=== PATIENT | male | born 1995 | race Hispanic/Latino ===

== ENCOUNTER 2018-07-23 17:40 | Emergency (ER) | payer MEDICARE ==
[~2018-07-23] VITALS: Ht 175.3 cm; Wt 84.4 kg
[2018-07-23] MEDS ORDERED: SODIUM CHLORIDE 0.9% 1000ML 1,000 ML IV STA (18:13)
[2018-07-23] MEDS ORDERED: ONDANSETRON HCL INJ 2MG/ML 2ML 2 MG/ML VIAL IV NR (18:14)
[2018-07-23] MEDS ORDERED: SODIUM CHLORIDE 0.9% 1000ML 1,000 ML IV SCH (18:15)
[2018-07-23] MEDS ORDERED: ACETAMINOPHEN 325 MG TAB PO ONE ×2 (18:15)
[2018-07-23] MEDS ORDERED: ACETAMINOPHEN 1000 MG/100 ML IV NR (18:26)
[2018-07-23] MEDS ORDERED: CETIRIZINE HCL10 MG PO (18:50)
[2018-07-23] MEDS ORDERED: FAMOTIDINE40 MG PO (18:50)
[2018-07-23 18:51] LABS: BILIRUBIN,URINE 2+ (NEGATIVE); CLARITY,URINE SL CLOUDY (CLEAR); COLOR,URINE STRAW (YELLOW); KETONES,URINE 2+ (NEGATIVE); LEUKOCYTE ESTERASE ,URINE NEGATIVE (NEGATIVE); NITRITE,URINE NEGATIVE (NEGATIVE); PROTEIN,URINE DIPSTICK 2+ (NEGATIVE); URINE UROBILINOGEN 4 mg/dL (0.2 - 1)
[2018-07-23 18:54] LABS: BASOPHILS % 0.3 % (0.0-1.0); HEMATOCRIT 41.2 % (38.2-49.6); HEMOGLOBIN 14.6 g/dL (14.0-18.0); LYMPHOCYTES # (AUTO) 1.6 (1.0-3.2); LYMPHOCYTES % 12.3 % (18.0-39.1); MEAN CORPUSCULAR HEMOGLOBIN 34.7 pg (28-32); MEAN CORPUSCULAR HGB CONC 35.4 g/dL (31-35); MEAN CORPUSCULAR VOLUME 97.9 fL (81-99); MONOCYTES # (AUTO) 2.3 (0.2-0.8); NEUTROPHILS # (AUTO) 8.8 (2.1-6.9); PLATELET COUNT 218 x10e3/uL (140-360); RED BLOOD COUNT 4.21 x10e6/uL (4.3-5.7); RED CELL DISTRIBUTION WIDTH 13.4 % (11.7-14.4)
[2018-07-23 19:01] LABS: AMORPHOUS SEDIMENT,URINE MODERATE (FEW); BACTERIA,URINE MODERATE /HPF; EPITHELIAL CELLS,URINE FEW /LPF; MUCUS,URINE FEW (RARE)
[2018-07-23 19:12] LABS: ALANINE AMINOTRANSFERASE 30 IU/L (0-55); ALBUMIN 4.4 g/dL (3.5-5.0); ALBUMIN/GLOBULIN RATIO 1.1 (0.8-2.0); ALKALINE PHOSPHATASE 65 IU/L (40-150); AMYLASE 44 U/L (25-125); ANION GAP 17.2 mmol/L (8-16); BLOOD UREA NITROGEN 11 mg/dL (7-26); BUN/CREATININE RATIO 14 (6-25); CALCIUM 9.6 mg/dL (8.4-10.2); CARBON DIOXIDE 21 mmol/L (22-29); CHLORIDE 98 mmol/L (98-107); CREATININE, SERUM 0.78 mg/dL (0.72-1.25); EST GLOMERULAR FILTRATION RATE > 60 ML/MIN (60-); GLUCOSE 110 mg/dL (74-118); LIPASE 11 U/L (8-78); POTASSIUM 3.2 mmol/L (3.5-5.1); SODIUM 133 mmol/L (136-145)
--- NOTE | 2018-07-23 19:21 | Diagnostic Imaging Report ---
EXAMINATION: CHEST SINGLE (PORTABLE) COMPARISON: None INDICATION: Fever, dehydration ^ERMD ORDER ^[id number] ^1850 ^Y DISCUSSION: Frontal view of the chest obtained at 1850 hours. HEART AND MEDIASTINUM: The heart is top normal in size to mildly enlarged. LINES: None. LUNGS: Lung volumes are low. No consolidation or interstitial thickening. PLEURA: No pleural effusion or pneumothorax. BONES AND SOFT TISSUES: No focal osseous lesion. The soft tissues are normal. IMPRESSION: Low lung volumes and mild cardiomegaly. No evidence of infiltrate. Signed by: Dr. Keisha Espinoza MD on 07/23/2018 7:18 PM
[2018-07-23 20:23] LABS: INFLUENZAE A&B ANTIGEN (RAPID) NEGATIVE (NEGATIVE)
[2018-07-23 20:40] LABS: STREPTOCOCCUS GRP A ANTIGEN NEGATIVE (NEGATIVE)
[2018-07-23] MEDS ORDERED: POTASSIUM CHLORIDE 20 MEQ TAB CR PO NR (20:51)
[2018-07-23] MEDS ORDERED: IBUPROFEN 400 MG TAB PO NR (21:00)
[2018-07-23] MEDS ORDERED: CEFTRIAXONE SOD 1 GM/NS 50 ML 50 ML IV ONE (21:00)
[2018-07-23] MEDS ORDERED: POTASSIUM CHLORIDE 20MEQ/15ML UDC ONE (21:11)
[2018-07-23] MEDS ORDERED: IBUPROFEN 100 MG/5 ML SUSP ONE (21:11)
[2018-07-23 21:52] VITALS: BP 145/81
== END 2018-07-23 21:53 | disposition home or self-care (01) ==
LOC: ER 17:40
DX: J20.9 Acute bronchitis, unspecified (principal); Q92.8 Other specified trisomies and partial trisomies of autosomes; Z82.49 Family history of ischemic heart disease and other diseases of the circulatory system; E87.6 Hypokalemia; D72.810 Lymphocytopenia
CPT/HCPCS: 36415; 71045; 80053; 81001; 82150; 83518; 83605; 83690; 85025; 87040; 87070; 87086; 87400; 99284; J0131; J0696; J2405; J7030

== ENCOUNTER 2018-08-26 23:35 | Emergency (ER) | payer MEDICARE ==
[~2018-08-26] VITALS: Ht 175.3 cm; Wt 84.4 kg
[~2018-08-26 23:35] MED LIST: CETIRIZINE HCL10 MG PO; FAMOTIDINE40 MG PO
--- OUTSIDE RECORDS SUMMARY | 2018-08-26 23:38 | XMS REPORT ---
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 Allergies, Adverse Reactions, Alerts This patient has no known allergies or adverse reactions. Medications This patient has no known medications. Results Test Description Test Time Test Comments Text Results Atomic Results Result Comments FUNGUS CULTURE + SMEAR 2018-08-26 18:37:00 CULTURE (BEAKER) (test xdmf=8965) No fungus isolated in 28 days FUNGUS SMEAR (BEAKER) (test zafy=1605) No fungi seen ANAEROBIC [id number] 07:12:00* Test Item Value Reference Range Comments CULTURE (BEAKER) (test rvua=7171) <1+ Finegoldia magna BLOOD [id number] 08:00:00* Test Item Value Reference Range Comments CULTURE (BEAKER) (test dcvw=7915) No growth in 5 days BLOOD [id number] 08:00:00* Test Item Value Reference Range Comments CULTURE (BEAKER) (test pfzv=2131) No growth in 5 days SURGICALLY OBTAINED CULTURE + GRAM [id number] 12:42:00* Test Item Value Reference Range Comments CULTURE (BEAKER) (test nrjk=1094) No growth GRAM STAIN RESULT (BEAKER) (test wqug=8347) No white blood cells seen GRAM STAIN RESULT (BEAKER) (test qgtt=72226) No organisms seen TISSUE [id number] 15:52:00Surgical Pathology Report Case: [id number] Authorizing Provider: Neo De Jesus MD Collected: 07/28/2018 1928 Ordering Location: [address] Received: 07/29/2018 0909 Service Pathologist: Elena Uriarte MD Specimen: Scrotum SKIN, SCROTUM, BIOPSY: - ULCERATION, NONSPECIFIC Signing Pathologist Direct Phone Line: [phone] signed by Elena Uriarte MD on 07/30/2018 at 3:52 [id number] givenScrotum tissue The specimen is received in a formalin-filled container and labeled with the patient's information labeled "scrotum tissue" and consists of a brown skin punch biopsy measuring 0.3 cm in diameter x 0.3 cm in depth. The resection margin is inked blue. The specimen is bisected and submitted entirely A1. CG/pl Sections show ulcerated skin with fibrinoid necrosis and acute inflammation which extends into the subcutis. Viral cytopathic or vasculitic changes are not seen.WOUND CULTURE + GRAM [id number] 09:57:00* Test Item Value Reference Range Comments CULTURE (BEAKER) (test wiqw=6781) 1+ Staphylococcus aureus GRAM STAIN RESULT (BEAKER) (test ombx=5532) 1+ White blood cells seen GRAM STAIN RESULT (BEAKER) (test wtbv=894953) <1+ gram negative rods GRAM STAIN RESULT (BEAKER) (test oeis=726761) 1+ gram variable rods GRAM STAIN RESULT (BEAKER) (test qtsw=476611) 1+ gram positive cocci 4+ Skin floraHIV-1 ANTIGEN WITH HIV-1/2 [id number] 06:31:00* Test Item Value Reference Range Comments HIV-1 ANTIGEN WITH HIV 1\\T\\2 ANTIBODY (2) (BEAKER) (test qoks=3859) Nonreactive Nonreactive BASIC METABOLIC [id number] 05:36:00* Test Item Value Reference Range Comments SODIUM (BEAKER) (test knba=862) 136 meq/L 136-145 POTASSIUM (BEAKER) (test fqan=576) 3.7 meq/L 3.5-5.1 CHLORIDE (BEAKER) (test lnzl=521) 105 meq/L 98-107 CO2 (BEAKER) (test rcxd=792) 22 meq/L 22-29 BLOOD UREA NITROGEN (BEAKER) (test eeoj=041) 10 mg/dL 7-21 CREATININE (BEAKER) (test cofs=886) 0.55 mg/dL 0.57-1.25 GLUCOSE RANDOM (BEAKER) (test gykw=887) 85 mg/dL 70-105 CALCIUM (BEAKER) (test maao=474) 9.2 mg/dL 8.4-10.2 EGFR (BEAKER) (test nazi=3311) 183 mL/min/1.73 sq m ESTIMATED GFR IS NOT ACCURATE CREATININE CLEARANCE IN PREDICTING GLOMERULAR FILTRATION RATE. ESTIMATED GFR IS NOT APPLICABLE FOR DIALYSIS PATIENTS. CBC (HEMOGRAM ONLY)2018-07-30 05:11:00* Test Item Value Reference Range Comments WHITE BLOOD CELL COUNT (BEAKER) (test wuig=465) 4.6 K/ L 3.5-10.5 RED BLOOD CELL COUNT (BEAKER) (test isds=900) 3.59 M/ L 4.63-6.08 HEMOGLOBIN (BEAKER) (test ehud=031) 12.3 GM/DL 13.7-17.5 HEMATOCRIT (BEAKER) (test slgm=223) 35.7 % 40.1-51.0 MEAN CORPUSCULAR VOLUME (BEAKER) (test jlut=001) 99.4 fL 79.0-92.2 MEAN CORPUSCULAR HEMOGLOBIN (BEAKER) (test lzvf=070) 34.3 pg 25.7-32.2 MEAN CORPUSCULAR HEMOGLOBIN CONC (BEAKER) (test hlir=673) 34.5 GM/DL 32.3-36.5 RED CELL DISTRIBUTION WIDTH (BEAKER) (test azrk=025) 13.2 % 11.6-14.4 PLATELET COUNT (BEAKER) (test kmmu=361) 349 K/CU MM 150-450 MEAN PLATELET VOLUME (BEAKER) (test onaj=753) 9.2 fL 9.4-12.4 NUCLEATED RED BLOOD CELLS (BEAKER) (test eadj=133) 0 /100 WBC 0-0 U/S, TESTICULAR (SCROTUM)2018-07-29 09:34:00Reason for exam:->unusual scrotal lesions and absent right testicle on examFINAL REPORT TECHNIQUE: Grayscale, color Doppler, and spectral Doppler ultrasound of the scrotum and testicles. INDICATION: 22-year-old man with absent right testicle on exam. COMPARISON: None. FINDINGS: RIGHT TESTIS: Undescended right testicle in the right groin measures 3.8 x 1.2 x 2 cm. Normal echotexture without focal lesions. LEFT TESTIS: Descended left testicle within the left hemiscrotum measures 4.1 x 1.6 x 2.2 cm. Few microcalcifications in the left testicle. Normal echotexture without focal lesions. VASCULAR: There are symmetric, arterial waveforms detected in both testes. No varicocele. EPIDIDYMIDES: Left epididymal cysts measure 0.5 x 0.6 x 0.7 cm and 0.7 x 0.6 x 0.5 cm. Right epididymis is unremarkable. SCROTUM: Left scrotal wall thickening with hyperem ia. IMPRESSION:Undescended right testicle in the right groin. Descended left te sticle in expected position. Few microcalcifications in the left testicle, nonsp ecific. Hyperemic left scrotal wall thickening, which may be seen in the settin g of cellulitis. Signed: Sandra Benavides MDReport Verified Date/Time: 9 09:34:03 Reading Location: [address] Ultrasound Reading Room [facility] signed by: SANDRA BENAVIDES MD on 07/29/2018 09:34 AM MAGNESIUM 2018-07-29 04:57:00* Test Item Value Reference Range Comments MAGNESIUM (BEAKER) (test hqdl=814) 2.1 mg/dL 1.6-2.6 BASIC METABOLIC [id number] 04:57:00* Test Item Value Reference Range Comments SODIUM (BEAKER) (test ffyl=439) 136 meq/L 136-145 POTASSIUM (BEAKER) (test kxcq=607) 3.5 meq/L 3.5-5.1 CHLORIDE (BEAKER) (test cito=653) 106 meq/L 98-107 CO2 (BEAKER) (test watq=287) 19 meq/L 22-29 BLOOD UREA NITROGEN (BEAKER) (test hska=120) 9 mg/dL 7-21 CREATININE (BEAKER) (test ezgz=027) 0.52 mg/dL 0.57-1.25 GLUCOSE RANDOM (BEAKER) (test scag=961) 95 mg/dL 70-105 CALCIUM (BEAKER) (test hquk=972) 8.9 mg/dL 8.4-10.2 EGFR (BEAKER) (test zkvp=6987) 195 mL/min/1.73 sq m ESTIMATED GFR IS NOT ACCURATE CREATININE CLEARANCE IN PREDICTING GLOMERULAR FILTRATION RATE. ESTIMATED GFR IS NOT APPLICABLE FOR DIALYSIS PATIENTS. RAD, CHEST, 1 VIEW, NON [id number] 08:22:00Reason for exam:->cough, feversShould this be performed at the bedside?->YesFINAL REPORT AP view of the chest dated 07/28/2018 CLINICAL INFORMATION: cough, fevers Comment: Heart is enlarged. Thoracic aorta is ectatic. Pulmonary vasculature is unremarkable. Lungs are clear. No pulmonary infiltrate or pleural effusion is present. Impression: Cardiomegaly without pulmonary edema. Signed: Greg Ward MDReport Verified Date/Time: 07/28/2018 08:22:04 Reading Location: [facility] Radiology Reading Room ALYSIS W/ REFLEX URINE [id number] 07:02:00* Test Item Value Reference Range Comments COLOR (BEAKER) (test ueqm=511) Yellow CLARITY (BEAKER) (test vgwt=221) Clear SPECIFIC GRAVITY UA (BEAKER) (test xrip=478) 1.016 1.001-1.035 PH UA (BEAKER) (test hwhg=307) 6.0 5.0-8.0 PROTEIN UA (BEAKER) (test zpmb=161) 10 mg/dL Negative GLUCOSE UA (BEAKER) (test ugpq=285) Negative Negative KETONES UA (BEAKER) (test mrjp=180) 10 mg/dL Negative BILIRUBIN UA (BEAKER) (test lbhi=506) Negative Negative BLOOD UA (BEAKER) (test rqzx=010) Negative Negative NITRITE UA (BEAKER) (test jmgx=464) Negative Negative LEUKOCYTE ESTERASE UA (BEAKER) (test pzws=640) Negative Negative UROBILINOGEN UA (BEAKER) (test oysv=677) > mg/dL 0.2-1.0 RBC UA (BEAKER) (test coqj=724) 2 /HPF WBC UA (BEAKER) (test moex=850) 4 /HPF MUCUS (BEAKER) (test dosb=6627) Few SQUAMOUS EPITHELIAL (BEAKER) (test iiwt=019) 2 /HPF SOURCE(BEAKER) (test chkc=3209) COMPREHENSIVE METABOLIC [id number] 06:00:00* Test Item Value Reference Range Comments TOTAL PROTEIN (BEAKER) (test igvt=453) 6.8 gm/dL 6.0-8.3 ALBUMIN (BEAKER) (test evtl=4086) 3.6 g/dL 3.5-5.0 ALKALINE PHOSPHATASE (BEAKER) (test rlyr=199) 70 U/L 40-150 BILIRUBIN TOTAL (BEAKER) (test vtpy=759) 0.9 mg/dL 0.2-1.2 SODIUM (BEAKER) (test eoyg=322) 137 meq/L 136-145 POTASSIUM (BEAKER) (test yksx=655) 3.0 meq/L 3.5-5.1 CHLORIDE (BEAKER) (test lnbd=512) 102 meq/L 98-107 CO2 (BEAKER) (test wlna=752) 26 meq/L 22-29 BLOOD UREA NITROGEN (BEAKER) (test ygjr=273) 8 mg/dL 7-21 CREATININE (BEAKER) (test rper=574) 0.58 mg/dL 0.57-1.25 GLUCOSE RANDOM (BEAKER) (test mjya=504) 97 mg/dL 70-105 CALCIUM (BEAKER) (test fpdo=868) 9.0 mg/dL 8.4-10.2 AST (SGOT) (BEAKER) (test kony=315) 29 U/L 5-34 ALT (SGPT) (BEAKER) (test pksa=870) 41 U/L 6-55 EGFR (BEAKER) (test ibbc=3348) 172 mL/min/1.73 sq m ESTIMATED GFR IS NOT ACCURATE CREATININE CLEARANCE IN PREDICTING GLOMERULAR FILTRATION RATE. ESTIMATED GFR IS NOT APPLICABLE FOR DIALYSIS PATIENTS. CBC W/PLT COUNT & AUTO [id number] 05:32:00* Test Item Value Reference Range Comments WHITE BLOOD CELL COUNT (BEAKER) (test hpch=991) 7.6 K/ L 3.5-10.5 RED BLOOD CELL COUNT (BEAKER) (test dbrj=026) 3.62 M/ L 4.63-6.08 HEMOGLOBIN (BEAKER) (test limk=996) 12.5 GM/DL 13.7-17.5 HEMATOCRIT (BEAKER) (test prnb=231) 36.3 % 40.1-51.0 MEAN CORPUSCULAR VOLUME (BEAKER) (test fivj=647) 100.3 fL 79.0-92.2 MEAN CORPUSCULAR HEMOGLOBIN (BEAKER) (test skej=598) 34.5 pg 25.7-32.2 MEAN CORPUSCULAR HEMOGLOBIN CONC (BEAKER) (test aunu=569) 34.4 GM/DL 32.3-36.5 RED CELL DISTRIBUTION WIDTH (BEAKER) (test zkei=856) 13.2 % 11.6-14.4 PLATELET COUNT (BEAKER) (test vzot=488) 274 K/CU MM 150-450 MEAN PLATELET VOLUME (BEAKER) (test hoai=556) 9.5 fL 9.4-12.4 NUCLEATED RED BLOOD CELLS (BEAKER) (test dyqc=229) 0 /100 WBC 0-0 NEUTROPHILS RELATIVE PERCENT (BEAKER) (test uycd=759) 52 % LYMPHOCYTES RELATIVE PERCENT (BEAKER) (test demc=648) 36 % MONOCYTES RELATIVE PERCENT (BEAKER) (test hnmn=816) 11 % EOSINOPHILS RELATIVE PERCENT (BEAKER) (test jpjh=602) 1 % BASOPHILS RELATIVE PERCENT (BEAKER) (test rqlx=294) 0 % NEUTROPHILS ABSOLUTE COUNT (BEAKER) (test dohr=167) 3.90 K/ L 1.78-5.38 LYMPHOCYTES ABSOLUTE COUNT (BEAKER) (test noei=742) 2.73 K/ L 1.32-3.57 MONOCYTES ABSOLUTE COUNT (BEAKER) (test vzlk=997) 0.82 K/ L 0.30-0.82 EOSINOPHILS ABSOLUTE COUNT (BEAKER) (test xxfp=918) 0.05 K/ L 0.04-0.54 BASOPHILS ABSOLUTE COUNT (BEAKER) (test dqag=933) 0.03 K/ L 0.01-0.08 IMMATURE GRANULOCYTES-RELATIVE PERCENT (BEAKER) (test mixw=5373) 0 % 0-1 CHEST SINGLE (PORTABLE)2018-07-23 19:16:00 [place] [address] Patient Name: LAURO BHAKTA MR #: [id number] : 1995 Age/Sex: 22/M Req #: [id number] Adm Physician: Ordered by: TALA COLVIN [employer]IP[employer] CUTTER Report #: [id number] Location: ER Room/Bed: Procedure: [id number] DX/CHEST SINGLE (PORTABLE) Exam Date: 07/23/18 Exam Time: 1850 REPORT STATUS: Sign ed EXAMINATION: CHEST SINGLE (PORTABLE) COMPARISON: None INDIC ATION: Fever, dehydration ERMD ORDER [id number] 1850 Y DISCUS GABBY: Frontal view of the chest obtained at 1850 hours. HEART AND MEDIAST INUM: The heart is top normal in size to mildly enlarged. LINES: None. LUNGS: Lung volumes are low. No consolidation or interstitial thickening. PLEURA: No pleural effusion or pneumothorax. BONES AND SOFT TISSUES: No focal osseous lesion. The soft tissues are normal. IMPRESSION: Low lung volumes and mild cardiomegaly. No evidence of infiltrate. Signed by: Dr. Keisha Espinoza MD on 07/23/2018 7:18 PM Dictated By: KEISHA ESPINOZA MD [address] scribed By: OSMANY on 07/23/181917 COPY TO: TALA COLVIN [employer] C[employer]TER
--- OUTSIDE RECORDS SUMMARY | 2018-08-26 23:38 | XMS REPORT | Clinical Summary ---
Author Author JOY [facility] Address Unknown Phone Unavailable Care Team Providers Care Last Repairer Helper Name Role Phone Juan Roberson MD PCP Allergies Comments Active Allergy Reactions Severity Noted Date Vancomycin Analogues Itching Low 07/28/2018 Medications End Date Status Medication Sig Dispensed Refills Start Date Active cetirizine (ZYRTEC) 10 MG TK 1 T PO QD 0 tablet 9 Active famotidine (PEPCID) 40 MG TK 1 T PO QD 3 tablet 9 07/31/2019 Active clotrimazole (LOTRIMIN) 1 Apply 30 g 11 % cream topically 2 9 (two) times daily To affected areas. 07/31/2018 Discontinued azithromycin (ZITHROMAX) Take 250 mg 0 250 MG tabletIndications: by mouth cellulitis groin area daily Take by mouth as directed. . 08/06/2018 doxycycline (MONODOX) 100 Take 1 12 capsule 0 MG capsule capsule (100 9 mg total) by mouth every 12 (twelve) hours for 6 days. 08/07/2018 levoFLOXacin (LEVAQUIN) Take 1 tablet 6 tablet 0 500 MG tablet (500 mg 9 total) by mouth daily for 6 days. 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 Encounters Care Team Description Date Type Specialty 07/30/2018 Orders Only General Internal Medicine Shamsee, GregoryMD Filipe Lucas, MD Neal Red Elie G., MD Nalam, Kellie Abreu MD Cellulitis of other specified site; Ulcers of genital organ in male; Scrotal skin lesion; Trisomy 8; Mild protein-calorie malnutrition (HCC) 07/28/2018 [facility] General Internal Medicine - Encounter 07/31/2018 07/28/2018 Travel after 08/25/2017 Social History Date Tobacco Use Types Packs/Day Years Used Never Smoker Smokeless Tobacco: Never Used Sex Assigned at Date Recorded Not on file Industry Job Start Date Occupation Not on file Not on file Not on file Travel End Travel History Travel Start No recent travel history available. Last Filed Vital Signs Time Taken Vital Sign Reading 07/31/2018 2:31 PM CDT Blood Pressure 116/76 07/31/2018 2:31 PM CDT Pulse 93 07/31/2018 2:31 PM CDT Temperature 35.9 C (96.7 F) 07/31/2018 2:31 PM CDT Respiratory Rate 18 07/31/2018 2:31 PM CDT Oxygen Saturation 97% - Inhaled Oxygen - Concentration 07/28/2018 5:00 PM CDT Weight 81.5 kg (179 lb 11.2 oz) 07/28/2018 1:46 AM CDT Height 172.7 cm (5' 8") 07/28/2018 5:00 PM CDT Body Mass Index 27.32 Plan of Treatment Not on file Procedures Comments Procedure Name Priority Date/Time Associated Diagnosis ECG 12-LEAD Routine 07/30/2018 4:53 PM CDT Procedure Note - Interface, External Ris In - 07/30/2018 4:57 PM CDT Ventricula r Rate 88 BPM Atrial Rate 88 BPM P-R Interval 168 ms QRS Duration 110 ms Q-T Interval 384 ms QTC Calculatio n(Bazett) 464 ms P [place] 35 degrees R [place] 59 degrees T [place] 3 degrees Normal sinus rhythm Normal ECG No previous ECGs available ECG 12-LEAD Routine 07/30/2018 4:53 PM CDT HIV-1 ANTIGEN WITH Routine 07/30/2018 HIV-1/2 ANTIBODY 4:30 AM CDT BASIC METABOLIC PANEL (7) Routine 07/30/2018 4:30 AM CDT CBC (HEMOGRAM ONLY) Routine 07/30/2018 4:30 AM CDT US TESTICULAR (SCROTUM) ZACK 07/29/2018 7:00 AM CDT MAGNESIUM Routine 07/29/2018 4:21 AM CDT BASIC METABOLIC PANEL (7) Routine 07/29/2018 4:21 AM CDT ANAEROBIC CULTURE Routine 07/28/2018 8:00 PM CDT FUNGUS CULTURE + SMEAR Routine 07/28/2018 8:00 PM CDT SURGICALLY OBTAINED Routine 07/28/2018 CULTURE + GRAM STAIN 7:32 PM CDT TISSUE EXAM AP Routine 07/28/2018 7:28 PM CDT XR CHEST 1 VIEW Routine 07/28/2018 PORTABLE/BEDSIDE 7:50 AM CDT URINALYSIS W/ REFLEX Routine 07/28/2018 URINE CULTURE 5:47 AM CDT CBC W/PLT COUNT & AUTO Routine 07/28/2018 DIFFERENTIAL 5:00 AM CDT COMPREHENSIVE METABOLIC Routine 07/28/2018 PANEL 5:00 AM CDT CBC W/PLT COUNT & AUTO Routine 07/28/2018 DIFFERENTIAL 5:00 AM CDT BLOOD CULTURE Routine 07/28/2018 5:00 AM CDT BLOOD CULTURE Routine 07/28/2018 5:00 AM CDT WOUND CULTURE + GRAM Routine 07/28/2018 STAIN 3:37 AM CDT after 08/25/2017 Results * ECG 12 lead (07/30/2018 4:53 PM CDT) Specimen Narrative Performed At Ventricular Rate 88 BPM GE MUSE Atrial Rate 88 BPM P-R Interval 168 ms QRS Duration 110 ms Q-T Interval 384 ms QTC Calculation(Bazett) 464 ms P [place] 35 degrees R [place] 59 degrees T [place] 3 degrees Normal sinus rhythm Normal ECG No previous ECGs available Confirmed by MD CERNA JORGE ([id number]) on 07/31/2018 12:30:11 PM Procedure Note Interface, External Ris In - 07/31/2018 12:30 PM CDT Ventricular Rate 88 BPM Atrial Rate 88 BPM P-R Interval 168 ms QRS Duration 110 ms Q-T Interval 384 ms QTC Calculation(Bazett) 464 ms P [place] 35 degrees R [place] 59 degrees T [place] 3 degrees Normal sinus rhythm Normal ECG No previous ECGs available Confirmed by MD CERNA JORGE ([id number]) on 07/31/2018 12:30:11 PM Performing Organization Address City/[facility] Phone Number GE MUSE * HIV-1 Antigen with HIV-1/2 Antibody (07/30/2018 4:30 AM CDT) HIV-1 Antigen with HIV NON-REACTIVE Nonreactive [facility] 1&2 Antibody [facility] Specimen Blood Performing Organization Address City/State/[facility] Phone Number [place] [id number] [place] [address] [phone] [place] [address] * CBC (Hemogram only) (07/30/2018 4:30 AM CDT) WBC 4.6 3.5 - 10.5 K/L [facility] RBC 3.59 (L) 4.63 - 6.08 M/L [facility] Hemoglobin 12.3 (L) 13.7 - 17.5 GM/DL [facility] Hematocrit 35.7 (L) 40.1 - 51.0 % [facility] MCV 99.4 (H) 79.0 - 92.2 fL [facility] MCH 34.3 (H) 25.7 - 32.2 pg [facility] MCHC 34.5 32.3 - 36.5 GM/DL [facility] RDW 13.2 11.6 - 14.4 % [facility] Platelets 349 150 - 450 K/CU MM [facility] MPV 9.2 (L) 9.4 - 12.4 fL [facility] nRBC 0 0 - 0 /100 WBC [facility] Specimen Blood Performing Organization Address City/[facility]/Zipcode Phone Number [facility] [address] [place] [address] [facility] * Basic Metabolic Panel (07/30/2018 4:30 AM CDT) Only the most recent of 2 results within the time period is included. Sodium 136 136 - 145 meq/L [facility] Potassium 3.7 3.5 - 5.1 meq/L [facility] Chloride 105 98 - 107 meq/L [facility] CO2 22 22 - 29 meq/L [facility] BUN 10 7 - 21 mg/dL [facility] Creatinine 0.55 (L) 0.57 - 1.25 mg/dL [facility] Glucose 85 70 - 105 mg/dL [facility] Calcium 9.2 8.4 - 10.2 mg/dL [facility] EGFR 183Comment: ESTIMATED GFR IS mL/min/1.73 sq m [facility] NOT ACCURATE CREATININE [facility] CLEARANCE IN PREDICTING GLOMERULAR FILTRATION RATE. ESTIMATED GFR IS NOT APPLICABLE FOR DIALYSIS PATIENTS. Specimen Blood Performing Organization Address City/[facility]/Zipcode Phone Number [facility] [address] [place] [address] [facility] * US testicular (scrotum) (07/29/2018 7:00 AM CDT) Specimen Narrative Performed At FINAL REPORT [employer] TECHNIQUE: Grayscale, color Doppler, and spectral Doppler [...] unremarkable. SCROTUM: Left scrotal wall thickening with hyperemia. IMPRESSION: Undescended right testicle in the right groin. Descended left testicle in expected position. Few microcalcifications in the left testicle, nonspecific. Hyperemic left scrotal wall thickening, which may be seen in the setting of cellulitis. Signed: Sandra Benavides MD Report Verified Date/Time:07/29/2018 09:34:03 Reading Location: [address] Ultrasound Reading Room Procedure Note Interface, External Ris In - 07/29/2018 9:36 AM CDT FINAL REPORT TECHNIQUE: Grayscale, color Doppler, and spectral [...] unremarkable. SCROTUM: Left scrotal wall thickening with hyperemia. IMPRESSION: Undescended right testicle in the right groin. Descended left testicle in expected position. Few microcalcifications in the left testicle, nonspecific. Hyperemic left scrotal wall thickening, which may be seen in the setting of cellulitis. Signed: Sandra Benavides MD Report Verified Date/Time: 07/29/2018 09:34:03 Reading Location: [address] Ultrasound Reading Room Performing Organization Address City/State/[facility] Phone Number RIS * Magnesium (07/29/2018 4:21 AM CDT) Magnesium 2.1 1.6 - 2.6 mg/dL [facility] Specimen Blood Performing Organization Address [facility] [place] [place] [address] [phone] [place] [address] * Anaerobic culture (07/28/2018 8:00 PM CDT) Result FINEGOLDIA MAGNA (A) [facility] Specimen Tissue Performing Organization Address [facility] Phone Number [id number] [place] [address] [phone] [place] [address] * Fungus culture + smear (07/28/2018 8:00 PM CDT) Result No fungus isolated in 28 days [facility] Fungus Smear No fungi seen [facility] Specimen Tissue Performing Organization Address City/[facility] Phone Number [address] [address] [phone] [place] [address] * Surgically obtained culture + gram stain (07/28/2018 7:32 PM CDT) Result No growth [facility] Gram Stain Result No white blood cells seen [facility] Gram Stain Result No organisms seen [facility] Specimen Tissue Performing Organization Address City/[facility] Phone Number [address] [address] [facility] * Tissue Exam (07/28/2018 7:28 PM CDT) Case Report Surgical Pathology [facility] Report [facility] Case: [id number] Authorizing Provider:Neo De Jesus MDCollected: 07/28/2018 1928 Ordering Location: [address] Received: 07/29/2018 0909 Service Pathologist: Elena Uriarte MD Specimen:Scrotum DIAGNOSIS SKIN, SCROTUM, BIOPSY: [facility] - ULCERATION, NONSPECIFIC [facility] Signing Pathologist Direct Phone Line: [phone] CPT Code(s) 71027 [facility] CLINICAL HISTORY Not given [facility] SPECIMEN SOURCE Scrotum tissue [facility] GROSS DESCRIPTION The specimen is received in a [facility] formalin-filled container and [facility] labeled with the patient's information labeled "scrotum tissue" and consists of a brown skin punch biopsy measuring 0.3 cm in diameter x 0.3 cm in depth. The resection margin is inked blue. The specimen is bisected and submitted entirely A1. CG/pl MICROSCOPIC DESCRIPTION Sections show ulcerated skin [facility] with fibrinoid necrosis and [facility] acute inflammation which extends into the subcutis. Viral cytopathic or vasculitic changes are not seen. Specimen Tissue Performing Organization Address City/State/Zipcode Phone Number [facility] [address] [place] [address] [phone] * XR chest 1 view portable / bedside (07/28/2018 7:50 AM CDT) Specimen Narrative Performed At FINAL REPORT [facility] AP view of the chest dated 07/28/2018 CLINICAL INFORMATION: cough, fevers Comment:Heart is enlarged. Thoracic aorta is ectatic. Pulmonary vasculature is unremarkable. Lungs are clear. No pulmonary infiltrate or pleural effusion is present. Impression: Cardiomegaly without pulmonary edema. Signed: Greg Ward MD Report Verified Date/Time:07/28/2018 08:22:04 Reading Location: [facility] Radiology Reading Room Procedure Note Interface, External Ris In - 07/28/2018 8:24 AM CDT FINAL REPORT AP view of the chest dated 07/28/2018 CLINICAL INFORMATION: cough, fevers Comment: Heart is enlarged. Thoracic aorta is ectatic. Pulmonary vasculature is unremarkable. Lungs are clear. No pulmonary infiltrate or pleural effusion is present. Impression: Cardiomegaly without pulmonary edema. Signed: Greg Ward MD Report Verified Date/Time: 07/28/2018 08:22:04 Reading Location: [facility] [place] Radiology Reading Room Performing Organization Address City/State/Zipcode Phone Number GE RIS * Urinalysis w/Microscopic + Reflex to Culture (07/28/2018 5:47 AM CDT) Color, UA Yellow [facility] Clarity, UA Clear [facility] Specific Cashion, UA 1.016 1.001 - 1.035 [facility] pH, UA 6.0 5.0 - 8.0 [facility] Protein, UA 10 mg/dL (A) Negative [facility] Glucose, UA Negative Negative [facility] Ketones, UA 10 mg/dL (A) Negative [facility] Bilirubin, UA Negative Negative [facility] Blood, UA Negative Negative [facility] Nitrite, UA Negative Negative [facility] Leukocytes, UA Negative Negative [facility] Urobilinogen, UA >12.0 (H) 0.2 - 1.0 mg/dL [facility] RBC, UA 2 /HPF [facility] WBC, UA 4 /HPF [facility] Mucus Few [facility] Squam Epithel, UA 2 /HPF [facility] Specimen Source [facility] Specimen Urine Performing Organization Address City/State/Zipcode Phone Number [facility] [address] [place] [address] [facility] * CBC with platelet count + automated diff (07/28/2018 5:00 AM CDT) WBC 7.6 3.5 - 10.5 K/L [facility] RBC 3.62 (L) 4.63 - 6.08 M/L [facility] Hemoglobin 12.5 (L) 13.7 - 17.5 GM/DL [facility] Hematocrit 36.3 (L) 40.1 - 51.0 % [facility] MCV 100.3 (H) 79.0 - 92.2 fL [facility] MCH 34.5 (H) 25.7 - 32.2 pg [facility] MCHC 34.4 32.3 - 36.5 GM/DL [facility] RDW 13.2 11.6 - 14.4 % [facility] Platelets 274 150 - 450 K/CU MM [facility] MPV 9.5 9.4 - 12.4 fL [facility] nRBC 0 0 - 0 /100 WBC [facility] % Neutros 52 % [facility] % Lymphs 36 % [facility] % Monos 11 % [facility] % Eos 1 % [facility] % Baso 0 % [facility] # Neutros 3.90 1.78 - 5.38 K/L [facility] # Lymphs 2.73 1.32 - 3.57 K/L [facility] # Monos 0.82 0.30 - 0.82 K/L [facility] # Eos 0.05 0.04 - 0.54 K/L [facility] # Baso 0.03 0.01 - 0.08 K/L [facility] Immature 0 0 - 1 % [facility] Granulocytes-Relative [facility] Specimen Blood Performing Organization Address City/State/[facility] Phone Number [address] [address] [phone] [place] [address] * Blood Culture - Routine (Left Venipuncture) (07/28/2018 5:00 AM CDT) Only the most recent of 2 results within the time period is included. Result No growth in 5 days [facility] Specimen Blood Performing Organization Address City/[facility] Phone Number [address] [address] [phone] [place] [address] * Comprehensive metabolic panel (07/28/2018 5:00 AM CDT) Protein, Total 6.8 6.0 - 8.3 gm/dL [facility] Albumin 3.6 3.5 - 5.0 g/dL [facility] Alkaline Phosphatase 70 40 - 150 U/L [facility] Total Bilirubin 0.9 0.2 - 1.2 mg/dL [facility] Sodium 137 136 - 145 meq/L [facility] Potassium 3.0 (L) 3.5 - 5.1 meq/L [facility] Chloride 102 98 - 107 meq/L [facility] CO2 26 22 - 29 meq/L [facility] BUN 8 7 - 21 mg/dL [facility] Creatinine 0.58 0.57 - 1.25 mg/dL [facility] Glucose 97 70 - 105 mg/dL [facility] Calcium 9.0 8.4 - 10.2 mg/dL [facility] AST 29 5 - 34 U/L [facility] ALT 41 6 - 55 U/L [facility] EGFR 172Comment: ESTIMATED GFR IS mL/min/1.73 sq m [facility] NOT ACCURATE CREATININE [facility] CLEARANCE IN PREDICTING GLOMERULAR FILTRATION RATE. ESTIMATED GFR IS NOT APPLICABLE FOR DIALYSIS PATIENTS. Specimen Blood Performing Organization Address City/[facility] Phone Number [facility] [address] [place] [address] [facility] * Wound culture + gram stain (07/28/2018 3:37 AM CDT) Result STAPHYLOCOCCUS AUREUS (A) [facility] Gram Stain Result 1+ White blood cells seen [facility] Gram Stain Result <1+ gram negative rods [facility] Gram Stain Result 1+ gram variable rods [facility] Gram Stain Result 1+ gram positive cocci [facility] Specimen Wound Narrative Performed At 4+ Skin jere [facility] Performing Organization Address City/[facility]/Zipcode Phone Number [facility] [address] [place] [address] [facility] after 08/25/2017 Insurance Payer Benefit Subscriber ID Type Phone Address Plan / Group MEDICAID MEDICAID xxxxxxxxx Medicaid [place] Advance Directives For more information, please contact: [address] [address] Date Inactivated Comments Code Status Date Activated 08/01/2018 9:17 AM Full Code 07/28/2018 2:46 AM This code status was determined by: Patient
[2018-08-26] MEDS ORDERED: LACTULOSE SYRUP 20 GM/30 ML UDC PO ONE (23:45)
[2018-08-26] MEDS ORDERED: CITRATE OF MAGNESIA 300ML BOTTLE PO ONE (23:45)
[2018-08-26] MEDS ORDERED: MINERAL OIL 132 ML BTL PR ONE (23:45)
--- NOTE | 2018-08-27 00:23 | Diagnostic Imaging Report ---
EXAM: Abdomen 3 images INDICATION: ^constipation ^[id number] ^[id number] COMPARISON: None FINDINGS: Gaseous distention of bowel loops in the left abdomen. Large colonic stool burden, especially in the rectum. No signs of pneumoperitoneum. No acute osseous abnormality. Degenerative changes of spine. Clear lung bases. IMPRESSION: Large colonic stool burden, consistent with history of constipation. There is suspected rectal fecal impaction with moderate gaseous distention of transverse and descending colon. Signed by: Dr. Felix Grimes MD on 08/27/2018 12:20 AM
--- NOTE | 2018-08-27 01:57 | NUR ---
PATIENT HAD 2 BOWEL MOVEMENTS SO FAR. MID SIZED.
[2018-08-27 02:33] VITALS: BP 137/86
== END 2018-08-27 02:52 | disposition home or self-care (01) ==
LOC: ER 23:35
DX: R10.9 Unspecified abdominal pain (principal); K59.00 Constipation, unspecified
CPT/HCPCS: 74018; 99283

== ENCOUNTER 2019-06-24 17:11 | Emergency (ER) | payer MEDICARE ==
[~2019-06-24] VITALS: Ht 175.3 cm; Wt 84.4 kg
--- NOTE | 2019-06-24 18:53 | Diagnostic Imaging Report ---
Exam: Right Hand Series. History: Status post fall with trauma to hand and forearm Comparison: None. Findings: 3 views of the right hand. There is normal bone mineralization. No acute, displaced fracture or dislocation. Mild subluxation of the distal interphalangeal joint of the fifth finger. The joint spaces are preserved. No abnormal soft tissue calcification or mass. No cystic erosive changes.No significant soft tissue swelling. Impression: 1. Mild subluxation of the distal interphalangeal joint of the fifth finger. No acute, displaced fracture or dislocation. Signed by: Dr. Derik Avina M.D. on 06/24/2019 6:51 PM
--- NOTE | 2019-06-24 18:54 | Diagnostic Imaging Report ---
Exam: right forearm 2 views. History: Status post fall with trauma to forearm Comparison: None. Findings: There is normal bone mineralization. No acute, displaced fracture or dislocation. Joint spaces preserved. No abnormal soft tissue calcification or soft tissue defect. No significant soft tissue swelling. Impression: 1. No acute abnormalities. Signed by: Dr. Derik Avina M.D. on 06/24/2019 6:52 PM
--- NOTE | 2019-06-24 18:59 | Diagnostic Imaging Report ---
CT BRAIN WO HISTORY: 23-year-old male status post fall. COMPARISON: None. TECHNIQUE: Noncontrast axial scans were obtained from skull base to the vertex. Coronal and sagittal reconstructions obtained from the axial data. One or more of the following dose reduction techniques were used: Automated exposure control, adjustment of the mA and/or kV according to patient size, and/or utilization of iterative reconstruction technique. DISCUSSION: Scalp/Skull: Unremarkable. No skull fracture Brain sulci: Appropriate for patient's age. Ventricles: Colpocephalic appearance of the atria and occipital horns with associated high riding appearance of the third ventricle. 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 No findings suggestive of hydrocephalus. Extra-axial spaces: No masses or fluid collections. Note is also made of an arachnoid cyst which displaces the cerebellum anteriorly. 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 No mass, hemorrhage, or large vascular territory acute infarct. Dural sinuses: No abnormal densities. Sellar/Suprasellar region: Intact. No masses. Skull base: Intact. Incidental findings: The right mastoid air cells and right external auditory canal are hypoplastic in appearance compared to the left. IMPRESSION: 1. No acute intracranial abnormalities. 2. 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 3. Hypoplastic appearance of the right mastoid air cells and right external auditory canal compared to the left which is of uncertain significance. If there is clinical concern a nonemergent temporal bone CT can be performed on an outpatient basis for further evaluation. Additional findings: Arachnoid cyst in the posterior fossa. This preliminary report was issued by Dr. Amaury Elizalde M.D. neuroradiology fellow at 1858 hours on 06/24/2019. Signed by: DR Tan Rebollar M.D. on 06/24/2019 7:26 PM
--- NOTE | 2019-06-24 19:11 | Diagnostic Imaging Report ---
CT CERVICAL SPINE WO HISTORY: 23-year-old male status post fall COMPARISON: None. TECHNIQUE: CT of the cervical spine without contrast. Sagittal and coronal reformations were created. One or more of the following dose reduction techniques were used: Automated exposure control, adjustment of the mA and/or kV according to patient size, and/or utilization of iterative reconstruction technique. FINDINGS: Focal kyphosis of the cervical spine at C3-C4 with straightening of the cervical spine from C4-C5 to C5-C6. There is no scoliosis or subluxation. No fractures, compression deformity, or destructive osseous lesions are seen. The craniocervical junction is intact. Note is made of posterior fossa arachnoid cyst which is described on the brain CT from the same day. No gross spinal canal masses are seen. The canal is moderately to severely narrowed from C3-C4 to C5-C6. The paravertebral and paraspinal soft tissues are unremarkable. The lung apices are unremarkable specifically no evidence of apical pneumothoraces. IMPRESSION: 1. No acute osseous abnormalities. 2. Focal kyphosis at C3-C4 with straightening of the spine from C4-C5 to C5-C6. 3. Moderate to severe narrowing of the canal from C3-C4 to C5-C6 which is felt to be secondary to abnormal kyphosis, constitutionally narrowed canal and straightening at these levels. If patient is symptomatic a nonemergent MRI of the cervical spine can be performed for further evaluation. Agree with preliminary report. This preliminary report was issued by Dr. Amaury Elizalde M.D. neuroradiology fellow at 1911 hours on 06/24/2019. Signed by: DR Tan Rebollar M.D. on 06/24/2019 7:29 PM
--- NOTE | 2019-06-24 19:27 | Diagnostic Imaging Report ---
CT MAXIO FAC/PARANAS WO HISTORY: 23-year-old male status post fall. COMPARISON: None. TECHNIQUE: Axial CT images through the face were obtained without contrast. Coronal/sagittal reformations were created. One or more of the following dose reduction techniques were used: Automated exposure control, adjustment of the mA and/or kV according to patient size, and/or utilization of iterative reconstruction technique. DISCUSSION: Moderately comminuted fracture of the anterior and left lateral nasal bones with associated moderate soft tissue swelling. No radiopaque foreign body. Evaluation is slightly limited as the anterior nasal soft tissues are collimated out of [id number] of the exam. No destructive osseous lesions are seen. The orbits are intact. A few nonspecific well-corticated punctate foci of calcification are identified along the right anterior temporal lobe and are most consistent with dural calcifications. For full description of additional intracranial findings please refer to the report for the brain CT from the same day. The paranasal sinuses are clear. No additional fractures are identified. Note is made of partial aeration of the greater wing of the left sphenoid bone without associated edema or hemorrhage. 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 The external auditory canals are noted to be symmetric. IMPRESSION: 1. Moderately comminuted nasal bone fractures with associated moderate soft tissue swelling and no evidence of a radiopaque foreign body. 2. No additional acute abnormalities. Additional findings: Hypoplastic appearance of the right mastoid air cells compared to the left. The external auditory canals are symmetric in appearance. This preliminary report was issued by Dr. Amaury Elizalde M.D. neuroradiology fellow at 1923 hours on 06/24/2019. Signed by: DR Tan Rebollar M.D. on 06/24/2019 8:35 PM
[2019-06-24] MEDS ORDERED: NEOMYCIN/POLYMYX/BACITR OINT 0.9 GM PKT ONE (21:35)
[2019-06-25 07:18] VITALS: BP 137/79
== END 2019-06-24 19:15 | disposition home or self-care (01) ==
LOC: ER 17:11
DX: S00.83XA Contusion of other part of head, initial encounter (principal); S02.2XXA Fracture of nasal bones, initial encounter for closed fracture; S60.221A Contusion of right hand, initial encounter; S50.11XA Contusion of right forearm, initial encounter; W01.0XXA Fall on same level from slipping, tripping and stumbling without subsequent striking against object, initial encounter; Y92.008 Other place in unspecified non-institutional (private) residence as the place of occurrence of the external cause; Q92.8 Other specified trisomies and partial trisomies of autosomes
CPT/HCPCS: 70450; 70486; 72125

== ENCOUNTER 2020-04-27 13:59 | Emergency (ER) | payer MEDICARE ==
[~2020-04-27] VITALS: Ht 175.3 cm; Wt 84.4 kg
== END 2020-04-27 14:35 | disposition home or self-care (01) ==
LOC: ER 14:01
DX: U07.1 COVID-19 (principal); R06.02 Shortness of breath; R05 Cough; Q92.8 Other specified trisomies and partial trisomies of autosomes
CPT/HCPCS: 99283

== ENCOUNTER 2020-07-26 12:50 | Emergency (ER) | payer OTHER, MEDICARE ==
[~2020-07-26] VITALS: Ht 175.3 cm; Wt 84.4 kg
[2020-07-26] MEDS ORDERED: ACETAMINOPHEN 325 MG TAB PO ONE (13:15)
[2020-07-26] MEDS ORDERED: IBUPROFEN200 MG PO (13:57)
[2020-07-26 13:59] VITALS: BP 127/93
== END 2020-07-26 14:05 | disposition home or self-care (01) ==
LOC: ER 12:58
DX: M54.5 Low back pain (principal); W01.0XXA Fall on same level from slipping, tripping and stumbling without subsequent striking against object, initial encounter; Y93.51 Activity, roller skating (inline) and skateboarding; Y92.331 Roller skating rink as the place of occurrence of the external cause; Q92.8 Other specified trisomies and partial trisomies of autosomes
CPT/HCPCS: 72100; 99283